=== PATIENT | male | born 1935 | race Hispanic/Latino ===

== ENCOUNTER 2018-05-05 13:03 | Emergency (ER) | payer MEDICARE ==
--- NOTE | 2018-05-05 14:13 | Emergency Department Report ---
ED General Adult HPI - General Chief complaint: Seizure Stated complaint: POSSIBLE SEIZURE Time Seen by Provider: 05/05/18 13:57 Source: patient, EMS (ems notes not available at time of chart dictation), RN notes reviewed Mode of arrival: Stretcher Limitations: No Limitations - History of Present Illness Initial comments: This is an 82-year-old male who was unknown to this provider. Has a past medical history of diabetes. Patient was at his primary care doctor's office, Dr. Orellana and was having routine phlebotomy performed. The patient reports at least 3 needle sticks. He indicates that while getting phlebotomy performed , he had convulsive-like activity, with urinary incontinence. Prior to the event, he had no symptoms, and reports being in his usual state of health. He specifically denies headache, neck pain, chest pain, abdominal pain, shortness of breath, urinary symptoms. His convulsive activity lasted for a few seconds, was not traumatic, and is now resolved. The patient indicates this is never happened to him before. He has no complaints at this time. -: Sudden Consistency: now resolved Improves with: none Worsens with: none Associated Symptoms: denies other symptoms, seizure. denies: chest pain, cough , diaphoresis, fever/chills, headaches, loss of appetite, malaise, nausea/ vomiting, rash, shortness of breath, syncope, weakness - Related Data Home Medications Medication Instructions Recorded Confirmed Last Taken AtorvaSTATin 80 mg PO HS 07/03/16 07/03/16 Unknown Diltiazem 240 mg PO DAILY 07/03/16 07/03/16 Unknown Enalapril Maleate 10 mg PO DAILY 07/03/16 07/03/16 Unknown Furosemide 20 mg PO DAILY 07/03/16 07/03/16 Unknown Klor-Con 10 1 tab PO DAILY 07/03/16 07/03/16 Unknown metFORMIN 500 mg PO DAILY 07/03/16 07/03/16 Unknown Previous Rx's Medication Instructions Recorded Last Taken Type Acetaminophen/Codeine [Tylenol #3] 1 tab PO Q6H PRN #10 tab 07/04/16 Unknown Rx Cyclobenzaprine HCl [Flexeril 5 MG 5 mg PO TID #15 tab 07/04/16 Unknown Rx TAB] Allergies Allergy/AdvReac Type Severity Reaction Status Date / Time ciprofloxacin [From Cipro] Allergy Hives Verified 07/03/16 20:44 ciprofloxacin HCl Allergy Hives Verified 07/03/16 20:44 [From Cipro] Penicillins Allergy Hives Verified 07/03/16 20:45 ED Review of Systems ROS: Stated complaint: POSSIBLE SEIZURE Other details as noted in HPI Comment: All other systems reviewed and negative ED Past Medical Hx - Past Medical History Hx Hypertension: Yes Hx Diabetes: Yes Hx of Cancer: Yes (bladder) Additional medical history: CARDIAC STENTS, LEFT COROTID PROBLEM - Surgical History Additional Surgical History: Left leg sugery - Social History Smoking Status: Never Smoker Substance Use Type: None - Medications Home Medications: Home Medications Medication Instructions Recorded Confirmed Last Taken Type AtorvaSTATin 80 mg PO HS 07/03/16 07/03/16 Unknown History Diltiazem 240 mg PO DAILY 07/03/16 07/03/16 Unknown History Enalapril Maleate 10 mg PO DAILY 07/03/16 07/03/16 Unknown History Furosemide 20 mg PO DAILY 07/03/16 07/03/16 Unknown History Klor-Con 10 1 tab PO DAILY 07/03/16 07/03/16 Unknown History metFORMIN 500 mg PO DAILY 07/03/16 07/03/16 Unknown History Acetaminophen/Codeine [Tylenol #3] 1 tab PO Q6H PRN #10 tab 07/04/16 Unknown Rx Cyclobenzaprine HCl [Flexeril 5 MG 5 mg PO TID #15 tab 07/04/16 Unknown Rx TAB] ED Physical Exam - General Limitations: No Limitations General appearance: alert, in no apparent distress - Head Head exam: Present: atraumatic (status post bilateral cataract surgery), normocephalic - Eye Eye exam: Present: normal appearance, EOMI, other (visual acuity intact to finger counting, color perception, reading at a close distance). Absent: nystagmus - ENT ENT exam: Present: normal exam, normal orophraynx, mucous membranes moist, normal external ear exam - Neck Neck exam: Present: normal inspection, full ROM. Absent: tenderness, meningismus - Respiratory Respiratory exam: Present: normal lung sounds bilaterally, chest wall tenderness. Absent: respiratory distress - Cardiovascular Cardiovascular Exam: Present: normal rhythm, bradycardia, systolic murmur (2/6 systolic murmur). Absent: tachycardia, irregular rhythm - GI/Abdominal GI/Abdominal exam: Present: soft, normal bowel sounds. Absent: distended, tenderness, guarding, rebound, rigid, pulsatile mass - Rectal Rectal exam: Present: deferred - Extremities Exam Extremities exam: Present: normal inspection, full ROM, normal capillary refill , pedal edema, other (there is no palpable cord. There is a negative Homans sign.). Absent: tenderness, calf tenderness - Back Exam Back exam: Present: normal inspection, full ROM. Absent: tenderness, CVA tenderness (R), paraspinal tenderness, vertebral tenderness - Neurological Exam Neurological exam: Present: alert, oriented X3, CN II-XII intact, normal gait, other (Extraocular movements intact. Tongue midline. No facial droop. Facial sensation intact to light touch in the V1, V2, V3 distribution bilaterally. 5 and 5 strength in 4 extremities.. Sensation is intact to light touch in 4 extremities.). Absent: motor sensory deficit - Psychiatric Psychiatric exam: Present: normal affect, normal mood - Skin Skin exam: Present: warm, dry, intact, normal color. Absent: rash ED Course Vital Signs 05/05/18 05/05/18 13:23 15:23 Temperature 98.3 F 97.7 F Pulse Rate 57 L 60 Respiratory 16 16 Rate Blood Pressure 154/60 Blood Pressure 161/64 [Right] O2 Sat by Pulse 94 95 Oximetry ED Medical Decision Making - Lab Data Result diagrams: 05/05/18 14:23 05/05/18 14:23 Vital Signs 05/05/18 05/05/18 13:23 15:23 Temperature 98.3 F 97.7 F Pulse Rate 57 L 60 Respiratory 16 16 Rate Blood Pressure 154/60 Blood Pressure 161/64 [Right] O2 Sat by Pulse 94 95 Oximetry Lab Results 05/05/18 05/05/18 05/05/18 Range/Units 14:23 14:23 14:23 WBC 10.3 (4.5-11.0) K/mm3 RBC 4.82 (3.65-5.03) M/mm3 Hgb 14.1 (11.8-15.2) gm/dl Hct 41.9 (35.5-45.6) % MCV 87 (84-94) fl MCH 29 (28-32) pg MCHC 34 (32-34) % RDW 13.6 (13.2-15.2) % Plt Count 220 (140-440) K/mm3 PT (12.2-14.9) Sec. INR (0.87-1.13) Sodium 140 (137-145) mmol/L Potassium 3.9 (3.6-5.0) mmol/L Chloride 101.4 (98-107) mmol/L Carbon Dioxide 25 (22-30) mmol/L Anion Gap 18 mmol/L BUN 19 (9-20) mg/dL Creatinine 1.2 (0.8-1.5) mg/dL Estimated GFR 58 ml/min BUN/Creatinine Ratio 16 % Glucose 102 H (75-100) mg/dL Calcium 10.1 (8.4-10.2) mg/dL Magnesium 2.20 (1.7-2.3) mg/dL Total Bilirubin 0.70 (0.1-1.2) mg/dL AST 28 (5-40) units/L ALT 35 (7-56) units/L Alkaline Phosphatase 78 (35-129) units/L Total Creatine Kinase 94 (55-170) units/L Total Protein 7.6 (6.3-8.2) g/dL Albumin 4.4 (3.9-5) g/dL Albumin/Globulin Ratio 1.4 % TSH 3.440 (0.270-4.200) mlU/mL Urine Color (Yellow) Urine Turbidity (Clear) Urine pH (5.0-7.0) Ur Specific [place] (1.003-1.030) Urine Protein (Negative) mg/dL Urine Glucose (UA) (Negative) mg/dL Urine Ketones (Negative) mg/dL Urine Blood (Negative) Urine Nitrite (Negative) Urine Bilirubin (Negative) Urine Urobilinogen (<2.0) mg/dL Ur Leukocyte Esterase (Negative) Urine WBC (Auto) (0.0-6.0) /HPF Urine RBC (Auto) (0.0-6.0) /HPF U Epithel Cells (Auto) (0-13.0) /HPF Urine Mucus /HPF 05/05/18 05/05/18 Range/Units 14:23 15:44 WBC (4.5-11.0) K/mm3 RBC (3.65-5.03) M/mm3 Hgb (11.8-15.2) gm/dl Hct (35.5-45.6) % MCV (84-94) fl MCH (28-32) pg MCHC (32-34) % RDW (13.2-15.2) % Plt Count (140-440) K/mm3 PT 13.9 (12.2-14.9) Sec. INR 1.02 (0.87-1.13) Sodium (137-145) mmol/L Potassium (3.6-5.0) mmol/L Chloride (98-107) mmol/L Carbon Dioxide (22-30) mmol/L Anion Gap mmol/L BUN (9-20) mg/dL Creatinine (0.8-1.5) mg/dL Estimated GFR ml/min BUN/Creatinine Ratio % Glucose (75-100) mg/dL Calcium (8.4-10.2) mg/dL Magnesium (1.7-2.3) mg/dL Total Bilirubin (0.1-1.2) mg/dL AST (5-40) units/L ALT (7-56) units/L Alkaline Phosphatase (35-129) units/L Total Creatine Kinase (55-170) units/L Total Protein (6.3-8.2) g/dL Albumin (3.9-5) g/dL Albumin/Globulin Ratio % TSH (0.270-4.200) mlU/mL Urine Color Yellow (Yellow) Urine Turbidity Clear (Clear) Urine pH 5.0 (5.0-7.0) Ur Specific [place] 1.012 (1.003-1.030) Urine Protein <15 mg/dl (Negative) mg/dL Urine Glucose (UA) 50 (Negative) mg/dL Urine Ketones Neg (Negative) mg/dL Urine Blood Neg (Negative) Urine Nitrite Neg (Negative) Urine Bilirubin Neg (Negative) Urine Urobilinogen < 2.0 (<2.0) mg/dL Ur Leukocyte Esterase Neg (Negative) Urine WBC (Auto) 4.0 (0.0-6.0) /HPF Urine RBC (Auto) 2.0 (0.0-6.0) /HPF U Epithel Cells (Auto) < 1.0 (0-13.0) /HPF Urine Mucus Few /HPF - EKG Data -: EKG Interpreted by Ut Rate: bradycardia - EKG Data When compared to previous EKG there are: previous EKG unavailable 05/05/18 16:28 Bradycardia, 57 beats minute, normal axis, QTC prolonged, right bundle branch block, not having chest pain, not a STEMI - Radiology Data Radiology results: report reviewed, image reviewed Noncontrast CT scan of the brain demonstrates no acute disease. Chronic findings noted. X-ray of the chest is negative for acute disease. Incidental age-related findings are noted. - Medical Decision Making Differential diagnosis, including but not limited to: Orthostasis, vagal event, electrolyte derangement, pneumonia, urinary tract infection, nonspecific convulsive event Assessment and plan: 82-year-old male with convulsive event while experiencing phlebotomy. This lasted for a few seconds and is now resolved. He had no complaints before the event and has no complaints at this time. He is afebrile with reassuring vital signs, clinically sober, has a Ilda Coma Scale of 15, with NIH score of 0. The patient prefers to follow up as an outpatient. He is counseled to follow up with his outpatient primary care doctor or a local neurology specialist for clearance to operating motor vehicle. Critical care attestation.: If time is entered above; I have spent that time in minutes in the direct care of this critically ill patient, excluding procedure time. ED Disposition Clinical Impression: Convulsion Disposition: DC-01 TO HOME OR SELFCARE Is pt being admited?: No Does the pt Need Aspirin: No Condition: Stable Instructions: Epilepsy (ED) Additional Instructions: Do not drive or operate motor vehicles for the next 6 months. Follow up with a primary care doctor or any of the listed neurology doctors within the next 5-7 days for further follow-up and evaluation. Return to the ER right away with new pain, worsened pain, migration of pain, fevers, chills, lethargy, irritability, projectile vomiting, change in mental status, confusion, inability to tolerate liquid feeds. Referrals: RUSH OLEARY MD [Primary Care Provider] - 3-5 Days GABRIEL ORELLANA MD [Staff Physician] - 3-5 Days JOO WALKER MD [Referring] - 3-5 Days RIGO CONNOR MD [Staff Physician] - 3-5 Days BASIA CHISHOLM MD [Staff Physician] - 3-5 Days
[2018-05-05 14:43] LABS: Hematocrit 41.9 % (35.5-45.6); Hemoglobin 14.1 gm/dl (11.8-15.2); Mean Corpuscular HGB Conc 34 % (32-34); Mean Corpuscular Hemoglobin 29 pg (28-32); Mean Corpuscular Volume 87 fl (84-94); Platelet Count 220 K/mm3 (140-440); Red Blood Count 4.82 M/mm3 (3.65-5.03); Red Cell Distribution Width 13.6 % (13.2-15.2)
[2018-05-05 15:00] LABS: INR 1.02 (0.87-1.13)
[2018-05-05 15:06] LABS: Albumin 4.4 g/dL (3.9-5); Calcium 10.1 mg/dL (8.4-10.2)
--- NOTE | 2018-05-05 15:34 | XRay Report ---
CHEST 2 VIEWS INDICATION: Seizure. COMPARISON: None similar. FINDINGS: Frontal and lateral chest radiographs demonstrate normal cardiomediastinal silhouette. Small perihilar blood vessels on-end versus few calcified granulomas. Slightly prominent bronchovascular markings centrally and toward the bases. Subtle costophrenic angle blunting, right more than left, not excluded for minimal fluid. No CHF however. Aortic knob calcifications. Demineralized bones with multilevel spinal degenerative spurring and few old healed rib deformities. CONCLUSION: Few incidental findings, as above. Please also correlate currently and with prior relevant imaging, if available. Thank you for the opportunity to participate in this patient's care.
--- NOTE | 2018-05-05 15:38 | Cat Scan Report ---
CT HEAD WITHOUT CONTRAST INDICATION: Seizure. COMPARISON: None similar. FINDINGS: Noncontrast head CT demonstrates symmetric, age-appropriate, enlarged ventricles and sulci. No acute infarct, hemorrhage, mass effect or midline shift. Predominantly bifrontal [id number] periventricular hypodensities. Prominent bifrontal extra-axial CSF spaces with approximately 5 mm thickness as on axial image 38, series 2. Normal posterior fossa with preserved basilar cisterns. Bilateral cataract surgery. Mild rightward nasal septal bowing. Mild bilateral ethmoid sinusitis. Clear remainder imaged paranasal sinuses and temporal bone air cells. Mild mastoid tip air cell opacification suspected, left more than right. Atherosclerotic ICA and vertebral artery calcifications. Intact calvarium. Normal scalp. Edentulous jaw. Cervical spondylosis. CONCLUSION: No acute intracranial CT abnormality with age-appropriate atrophy, microvascular changes and few other findings, as above. Please correlate. Thank you for the opportunity to participate in this patient's care.
[2018-05-05 15:53] LABS: Bilirubin,Urine NEG (Negative); Blood,Urine NEG (Negative); Color,Urine Yellow (Yellow); Mucus,Urine FEW /HPF; Protein,Urine <15 mg/dL mg/dL (Negative); Urobilinogen,Urine < 2.0 mg/dL (<2.0)
[2018-05-05 17:28] VITALS: BP 166/69
== END 2018-05-05 17:48 | disposition home or self-care (01) ==
LOC: ED 13:03
DX: R56.9 Unspecified convulsions (principal); I10 Essential (primary) hypertension; E11.9 Type 2 diabetes mellitus without complications; Z85.51 Personal history of malignant neoplasm of bladder; Z95.1 Presence of aortocoronary bypass graft; Z88.1 Allergy status to other antibiotic agents; Z88.0 Allergy status to penicillin
CPT/HCPCS: 36415; 70450; 71046; 80053; 81001; 82550; 83735; 84443; 85027; 85610; 93005; 93010

== ENCOUNTER 2019-01-23 09:37 | Emergency (ER) | payer MEDICARE ==
[2019-01-23] MEDS ORDERED: MORPHINE IV ONE ×3 (10:45→14:45)
[2019-01-23] MEDS ORDERED: ZOFRAN IV ONE (10:45)
--- NOTE | 2019-01-23 10:52 | Emergency Department Report ---
ED Back Pain/Injury HPI - General Chief Complaint: Back Pain/Injury Stated Complaint: KIDNEY ISSUES Time Seen by Provider: 01/23/19 10:13 Source: patient, family Limitations: No Limitations - History of Present Illness Initial Comments: 83-year-old male with a past medical history CAD with stents, bladder cancer treated surgically and currently in remission, diabetes, hypertension, previous cholecystectomy since the hospital complaint right flank pain 1 week. Patient states that it feels like he was struck with a sledgehammer. Patient had blood drawn by his PCP 3 days ago and received a call last night that result showed "slowed kidneys". Patient became concerned when he did not have any urinary output this morning despite drinking plenty of fluids. He's been taking Tylenol intermittently for pain without relief. Right flank pain is moderate, constant, worse with palpation and movement. No distal weakness or numbness reported. PMD: Dr. tae Pulido Grill Cook: Dr. Tapia, urologist Dr. Youngblood - Related Data Home Medications Medication Instructions Recorded Confirmed Last Taken Alendronate Sodium [Fosamax] 70 mg PO QWEEK 01/23/19 01/23/19 Unknown Aspirin [Aspirin BABY CHEW TAB] 81 mg PO QDAY 01/23/19 01/23/19 Unknown AtorvaSTATin [Lipitor] 80 mg PO QHS 01/23/19 01/23/19 Unknown Cholecalciferol Vit D3 [Vitamin D3 1,000 unit PO QDAY 01/23/19 01/23/19 Unknown 1,000 UNIT TAB] Cranberry Fruit Extract [Cranberry] 500 mg PO QDAY 01/23/19 01/23/19 Unknown Diltiazem HCl [Diltiazem ER] 240 mg PO QDAY 01/23/19 01/23/19 Unknown Lactobacill 46/B.animal/Inulin 1 each PO QDAY 01/23/19 01/23/19 Unknown [Probiotic-10 10 Bill Cell Cap] Losartan [Cozaar] 50 mg PO QDAY 01/23/19 01/23/19 Unknown [place]-3 Fatty Acids/Fish Oil [Fish 1 each PO QDAY 01/23/19 01/23/19 Unknown Oil 1,000 mg Capsule] metFORMIN [Glucophage] 500 mg PO QDAY 01/23/19 01/23/19 Unknown Previous Rx's Medication Instructions Recorded Last Taken Type HYDROcodone/APAP 5-325 [[place] 1 each PO Q6HR PRN #20 tablet 01/23/19 Unknown Rx 5/325] Ibuprofen [Motrin] 400 mg PO Q8H PRN #20 tablet 01/23/19 Unknown Rx Ondansetron [Zofran Odt] 4 mg PO Q8HR PRN #20 tab.rapdis 01/23/19 Unknown Rx Allergies Allergy/AdvReac Type Severity Reaction Status Date / Time ciprofloxacin [From Cipro] Allergy Hives Verified 01/23/19 09:40 ciprofloxacin HCl Allergy Hives Verified 01/23/19 09:40 [From Cipro] Penicillins Allergy Hives Verified 01/23/19 09:40 ED Review of Systems ROS: Stated complaint: KIDNEY ISSUES Other details as noted in HPI Comment: All other systems reviewed and negative ED Past Medical Hx - Past Medical History Hx Hypertension: Yes Hx Diabetes: Yes Hx of Cancer: Yes (bladder cancer) Additional medical history: CARDIAC STENTS, LEFT COROTID PROBLEM - Surgical History Hx Cholecystectomy: Yes Additional Surgical History: Left leg sugery - Social History Smoking Status: Former Smoker - Medications Home Medications: Home Medications Medication Instructions Recorded Confirmed Last Taken Type Alendronate Sodium [Fosamax] 70 mg PO QWEEK 01/23/19 01/23/19 Unknown History Aspirin [Aspirin BABY CHEW TAB] 81 mg PO QDAY 01/23/19 01/23/19 Unknown History AtorvaSTATin [Lipitor] 80 mg PO QHS 01/23/19 01/23/19 Unknown History Cholecalciferol Vit D3 [Vitamin D3 1,000 unit PO QDAY 01/23/19 01/23/19 Unknown History 1,000 UNIT TAB] Cranberry Fruit Extract [Cranberry] 500 mg PO QDAY 01/23/19 01/23/19 Unknown History Diltiazem HCl [Diltiazem ER] 240 mg PO QDAY 01/23/19 01/23/19 Unknown History HYDROcodone/APAP 5-325 [[place] 1 each PO Q6HR PRN #20 tablet 01/23/19 Unknown Rx 5/325] Ibuprofen [Motrin] 400 mg PO Q8H PRN #20 tablet 01/23/19 Unknown Rx Lactobacill 46/B.animal/Inulin 1 each PO QDAY 01/23/19 01/23/19 Unknown History [Probiotic-10 10 Bill Cell Cap] Losartan [Cozaar] 50 mg PO QDAY 01/23/19 01/23/19 Unknown History [place]-3 Fatty Acids/Fish Oil [Fish 1 each PO QDAY 01/23/19 01/23/19 Unknown History Oil 1,000 mg Capsule] Ondansetron [Zofran Odt] 4 mg PO Q8HR PRN #20 tab.rapdis 01/23/19 Unknown Rx metFORMIN [Glucophage] 500 mg PO QDAY 01/23/19 01/23/19 Unknown History ED Physical Exam - General Limitations: No Limitations - Other Other exam information: General: No limitations, patient is alert in no acute distress Head exam: Atraumatic, normocephalic Eyes exam: Normal appearance, pupils equal reactive to light, extraocular movements intact ENT: Moist mucous membrane Neck exam: Normal inspection, full range of motion, no meningismus nontender Respiratory exam: Clear to auscultation bilateral, no wheezes, rales, crackles Cardiovascular: Normal rate and rhythm, systolic murmur Abdomen: Soft, nondistended, and nontender, with normal bowel sounds, no rebound, or guarding Extremity: Full range of motion normal inspection no deformity Back: Normal Inspection, full range of motion, right flank pain, no midline tenderness Neurologic: Alert, oriented x3, cranial nerves intact, no motor or sensory deficit Psychiatric: normal affect, normal mood Skin: Warm, dry, intact ED Course Vital Signs 01/23/19 01/23/19 10:14 10:16 Temperature 97.8 F Pulse Rate 60 Respiratory 17 17 Rate Blood Pressure 150/57 [Right] O2 Sat by Pulse 96 96 Oximetry - Consultations Consultation #1: 01/23/19 14:26 case d/w Dr Reddy disposition clerk for [facility], last time he was seen was in the office in Sep with scheduled f/u in March. States march f/u with Dr Engel regarding flank pain and ct findings. Consultation #2: 01/23/19 14:31 Case d/w Dr Jalloh (pul) disposition clerk for Dr Orellana, agree that pt can f/u ED Medical Decision Making - Lab Data Result diagrams: 01/23/19 10:42 01/23/19 10:42 Lab Results 01/23/19 01/23/19 01/23/19 Range/Units 10:42 10:42 13:20 WBC 6.5 (4.5-11.0) K/mm3 RBC 4.53 (3.65-5.03) M/mm3 Hgb 13.1 (11.8-15.2) gm/dl Hct 38.6 (35.5-45.6) % MCV 85 (84-94) fl MCH 29 (28-32) pg MCHC 34 (32-34) % RDW 14.2 (13.2-15.2) % Plt Count 206 (140-440) K/mm3 Lymph % (Auto) 20.7 (13.4-35.0) % [place] % (Auto) 6.9 (0.0-7.3) % Eos % (Auto) 1.1 (0.0-4.3) % Baso % (Auto) 0.8 (0.0-1.8) % Lymph # 1.4 (1.2-5.4) K/mm3 [place] # 0.4 (0.0-0.8) K/mm3 Eos # 0.1 (0.0-0.4) K/mm3 Baso # 0.1 (0.0-0.1) K/mm3 Seg Neutrophils % 70.5 H (40.0-70.0) % Seg Neutrophils # 4.6 (1.8-7.7) K/mm3 Sodium 137 (137-145) mmol/L Potassium 4.6 (3.6-5.0) mmol/L Chloride 102.7 (98-107) mmol/L Carbon Dioxide 23 (22-30) mmol/L Anion Gap 16 mmol/L BUN 18 (9-20) mg/dL Creatinine 1.2 (0.8-1.5) mg/dL Estimated GFR 58 ml/min BUN/Creatinine Ratio 15 % Glucose 127 H (75-100) mg/dL Calcium 9.2 (8.4-10.2) mg/dL Total Bilirubin 0.60 (0.1-1.2) mg/dL AST 20 (5-40) units/L ALT 25 (7-56) units/L Alkaline Phosphatase 59 (35-129) units/L Total Protein 6.6 (6.3-8.2) g/dL Albumin 4.0 (3.9-5) g/dL Albumin/Globulin Ratio 1.5 % Urine Color Straw (Yellow) Urine Turbidity Clear (Clear) Urine pH 5.0 (5.0-7.0) Ur Specific [place] 1.008 (1.003-1.030) Urine Protein <15 mg/dl (Negative) mg/dL Urine Glucose (UA) Neg (Negative) mg/dL Urine Ketones Neg (Negative) mg/dL Urine Blood Neg (Negative) Urine Nitrite Neg (Negative) Urine Bilirubin Neg (Negative) Urine Urobilinogen < 2.0 (<2.0) mg/dL Ur Leukocyte Esterase Neg (Negative) Urine WBC (Auto) 1.0 (0.0-6.0) /HPF Urine RBC (Auto) 1.0 (0.0-6.0) /HPF U Epithel Cells (Auto) < 1.0 (0-13.0) /HPF Urine Mucus Few /HPF - Radiology Data Radiology results: report reviewed PROCEDURE: CT ABDOMEN PELVIS WO CON TECHNIQUE: HISTORY: right flank pain, decreased uop, hx of bladder ca FINDINGS: TECHNICAL QUALITY: Satisfactory. FINDINGS: Lower lung bases: Moderate size right pleural effusion and dependent pleural-based opacity. Small calcifications within the opacity. Trace left pleural effusion. Anterior pericardial effusion measures 1.1 cm in diameter. Liver: Normal size and attenuation. Spleen: Normal size and attenuation. Gall bladder and biliary system: Surgically absent. Pancreas: Normal. Adrenals: Normal. Kidneys: 2.5 x 2 cm right renal cyst. Mild to moderate right-sided hydronephrosis to the level urinary bladder. No stones within the right ureter. GI tract: Normal . Lymph nodes and mesentery: Normal. Vasculature: Ath erosclerosis of the abdominal aorta without aneurysm. Peritoneum: No free fluid. Musculoskeletal structures: No significant abnormality. Other: None. IMPRESSION: 1. Mild to moderate right-sided hydroureteronephrosis to the level urinary bladder without stone. Stricture at the UVJ could be a possibility. 2. Pleural effusions with pleural base calcifications versus recent opacity in the right lower lobe. Attention on next follow-up. PROCEDURE: XR CHEST 1V AP TECHNIQUE: Single frontal portable view of the chest HISTORY: right sided pain, possible effusion on ct COMPARISONS: 2 view chest 05/05/[address] 01/23/2019 FINDINGS: Right pleural effusion appears small on this single frontal view. The posterior lung base is not visualized on frontal portable chest. No evidence of left pleural effusion. No pneumothorax. Normal cardiac silhouette size without vascular congestion. No acute displaced fracture. Aortic arch calcification compatible with atherosclerosis. Degenerative spondylosis thoracic spine. Healed left rib fractures. No focal pulmonary consolidation. IMPRESSION: Right pleural effusion appears small on this single frontal view - Medical Decision Making Patient feeling better with additional meds provided prior to discharge. Explained to patient and his his findings regarding his kidneys, renal fu nction, and pleural effusion and the need for follow-up. Pain meds will be provided - Differential Diagnosis renal colic, cancer, UTI, dehydration Critical Care Time: No Critical care attestation.: If time is entered above; I have spent that time in minutes in the direct care of this critically ill patient, excluding procedure time. ED Disposition Clinical Impression: Right flank pain, Hydroureteronephrosis, Pleural effusion, right Disposition: - TO HOME OR SELFCARE Is pt being admited?: No Does the pt Need Aspirin: No Condition: Stable Instructions: Hydronephrosis (ED), Pleural Effusion (ED) Additional Instructions: Take the medication as prescribed. Follow up with your doctor or the clinic/doctor provided. Return if symptoms worsen as indicated by your discharge instructions. Take the copy of your labs and imaging results to your doctor for follow-up Prescriptions: Ibuprofen [Motrin] 400 mg PO Q8H PRN #20 tablet PRN Reason: Pain, Moderate (4-6) HYDROcodone/APAP 5-325 [[place] 5/325] 1 each PO Q6HR PRN #20 tablet PRN Reason: Pain Ondansetron [Zofran Odt] 4 mg PO Q8HR PRN #20 tab.rapdis PRN Reason: Nausea And Vomiting Referrals: GABRIEL ORELLANA MD [Primary Care Provider] - 3-5 Days SILVANA REYES MD [Staff Physician] - 3-5 Days Time of Disposition: 14:55
[2019-01-23 10:56] LABS: Basophils # (Auto) 0.1 K/mm3 (0.0-0.1); Basophils % (Auto) 0.8 % (0.0-1.8); Eosinophils # (Auto) 0.1 K/mm3 (0.0-0.4); Eosinophils % (Auto) 1.1 % (0.0-4.3); Hematocrit 38.6 % (35.5-45.6); Hemoglobin 13.1 gm/dl (11.8-15.2); Lymphocytes # (Auto) 1.4 K/mm3 (1.2-5.4); Lymphocytes % (Auto) 20.7 % (13.4-35.0); Mean Corpuscular HGB Conc 34 % (32-34); Mean Corpuscular Volume 85 fl (84-94); Monocytes # (Auto) 0.4 K/mm3 (0.0-0.8); Monocytes % (Auto) 6.9 % (0.0-7.3); Platelet Count 206 K/mm3 (140-440); Red Blood Count 4.53 M/mm3 (3.65-5.03); Red Cell Distribution Width 14.2 % (13.2-15.2)
[2019-01-23 11:16] LABS: Calcium 9.2 mg/dL (8.4-10.2)
--- NOTE | 2019-01-23 12:59 | Cat Scan Report ---
PROCEDURE: CT ABDOMEN PELVIS WO CON TECHNIQUE: HISTORY: right flank pain, decreased uop, hx of bladder ca FINDINGS: TECHNICAL QUALITY: Satisfactory. FINDINGS: Lower lung bases: Moderate size right pleural effusion and dependent pleural-based opacity. Small calcifications within the opacity. Trace left pleural effusion. Anterior pericardial effusion measures 1.1 cm in diameter. Liver: Normal size and attenuation. Spleen: Normal size and attenuation. Gallbladder and biliary system: Surgically absent. Pancreas: Normal. Adrenals: Normal. Kidneys: 2.5 x 2 cm right renal cyst. Mild to moderate right-sided hydronephrosis to the level urinar y bladder. No stones within the right ureter. GI tract: Normal . Lymph nodes and mesentery: Normal. Vasculature: Atherosclerosis of the abdominal aorta without aneurysm. Peritoneum: No free fluid. Musculoskeletal structures: No significant abnormality. Other: None. IMPRESSION: 1. Mild to moderate right-sided hydroureteronephrosis to the level urinary bladder without stone. Str icture at the UVJ could be a possibility. 2. Pleural effusions with pleural base calcifications versus recent opacity in the right lower lobe. Attention on next follow-up. . This document is electronically signed by Charmaine Cabrera MD., January 23 2019 12:56:59 PM ET
[2019-01-23 13:39] LABS: Bilirubin,Urine NEG (Negative); Blood,Urine NEG (Negative); Color,Urine Straw (Yellow); Mucus,Urine FEW /HPF; Protein,Urine <15 mg/dL mg/dL (Negative); Urobilinogen,Urine < 2.0 mg/dL (<2.0)
--- NOTE | 2019-01-23 14:31 | XRay Report ---
PROCEDURE: XR CHEST 1V AP TECHNIQUE: Single frontal portable view of the chest HISTORY: right sided pain, possible effusion on ct COMPARISONS: 2 view chest 05/05/[address] 01/23/2019 FINDINGS: Right pleural effusion appears small on this single frontal view. The posterior lung base is not visu alized on frontal portable chest. No evidence of left pleural effusion. No pneumothorax. Normal cardiac silhouette size without vascula r congestion. No acute displaced fracture. Aortic arch calcification compatible with atherosclerosis. Degenerative spondylosis thoracic spine. Healed left rib fractures. No focal pulmonary consolidation . IMPRESSION: Right pleural effusion appears small on this single frontal view This document is electronically signed by Craig Weldon MD., January 23 2019 02:28:40 PM ET
[2019-01-23] MEDS ORDERED: TORADOL IV ONE (14:47)
[2019-01-23 15:35] VITALS: BP 146/5
== END 2019-01-23 15:34 | disposition home or self-care (01) ==
LOC: ED 09:37
DX: N13.30 Unspecified hydronephrosis (principal); J90 Pleural effusion, not elsewhere classified; I10 Essential (primary) hypertension; E11.9 Type 2 diabetes mellitus without complications; Z95.5 Presence of coronary angioplasty implant and graft; Z85.51 Personal history of malignant neoplasm of bladder; Z87.891 Personal history of nicotine dependence; Z90.49 Acquired absence of other specified parts of digestive tract; Z88.1 Allergy status to other antibiotic agents; Z88.0 Allergy status to penicillin; Z79.84 Long term (current) use of oral hypoglycemic drugs
CPT/HCPCS: 36415; 71045; 74176; 80053; 81001; 85025; 96374; 96375; 96376; 99284; J1885; J2270; J2405

== ENCOUNTER 2019-07-01 09:20 | Outpatient (CLI) | payer MEDICARE ==
[2019-07-01 10:44] LABS: Hematocrit 39.2 % (35.5-45.6); Hemoglobin 13.1 gm/dl (11.8-15.2); Mean Corpuscular HGB Conc 34 % (32-34); Mean Corpuscular Volume 86 fl (84-94); Platelet Count 213 K/mm3 (140-440); Red Blood Count 4.57 M/mm3 (3.65-5.03); Red Cell Distribution Width 13.5 % (13.2-15.2)
[2019-07-01 10:57] LABS: Albumin 4.2 g/dL (3.9-5); Calcium 9.2 mg/dL (8.4-10.2); Chol/HDL Ratio 2.31 %
[2019-07-05 13:05] LABS: Vitamin D, 25-OH, D2 <4 ng/mL
== END 2019-07-01 09:21 | disposition home or self-care (01) ==
LOC: LAB 09:20
PROVIDERS: ATTEND Internal Medicine
DX: E11.9 Type 2 diabetes mellitus without complications (principal); E78.5 Hyperlipidemia, unspecified; Z13.21 Encounter for screening for nutritional disorder; I10 Essential (primary) hypertension
CPT/HCPCS: 36415; 80053; 80061; 82306; 83036; 84443; 85027

== ENCOUNTER 2019-07-22 08:21 | Emergency (ER) | payer MEDICARE ==
[2019-07-22 11:07] VITALS: BP 172/98
--- NOTE | 2019-07-22 11:16 | Emergency Department Report ---
Upper Extremity - HPI Chief Complaint: Fall Stated Complaint: RT ARM FALL INJURY/WILLA Time Seen by Provider: 07/22/19 11:13 Upper Extremity: Right Arm, Right Elbow, Right Forearm Occurred When: 1 Day Mechanism: Fall Symptoms: Yes Pain with Movement, Yes Limited Range of Movement, No Deformity, No Numbness, No Weakness, No Swelling, No Bruising/Ecchymosis, No Laceration or Abrasion Other History: Patient is a 84-year-old male that presents emergency room with complaints of right forearm and right upper arm pain. Patient states he fell last night. Patient states he hit his arm against a piece of furniture. Patient states he has a history of osteoporosis, high cholesterol, high blood pressure. Patient's [facility] chart reviewed ED Review of Systems ROS: Stated complaint: RT ARM FALL INJURY/WILLA Other details as noted in HPI Constitutional: denies: chills, fever Eyes: denies: eye pain, eye discharge, vision change ENT: denies: ear pain, throat pain Respiratory: denies: cough, shortness of breath, wheezing Cardiovascular: denies: chest pain, palpitations Endocrine: no symptoms reported Gastrointestinal: denies: abdominal pain, nausea, diarrhea Genitourinary: denies: urgency, dysuria Musculoskeletal: denies: back pain, joint swelling, arthralgia Skin: denies: rash, lesions Neurological: denies: headache, weakness, paresthesias Psychiatric: denies: anxiety, depression Hematological/Lymphatic: denies: easy bleeding, easy bruising ED Past Medical Hx - Past Medical History Previous Medical History?: Yes Hx Hypertension: Yes Hx Diabetes: Yes Additional medical history: CARDIAC STENTS, LEFT COROTID PROBLEM - Surgical History Past Surgical History?: Yes Hx Cholecystectomy: Yes Additional Surgical History: Left leg sugery - Family History Family history: no significant - Social History Smoking Status: Former Smoker Substance Use Type: None - Medications Home Medications: Home Medications Medication Instructions Recorded Confirmed Last Taken Type Alendronate Sodium [Fosamax] 70 mg PO QWEEK 01/23/19 07/22/19 07/22/19 History Aspirin [Aspirin BABY CHEW TAB] 81 mg PO QDAY 01/23/19 07/22/19 07/22/19 History AtorvaSTATin [Lipitor] 80 mg PO QHS 01/23/19 07/22/19 07/22/19 History Cholecalciferol Vit D3 [Vitamin D3 1,000 unit PO QDAY 01/23/19 07/22/19 07/21/19 History 1,000 UNIT TAB] Cranberry Fruit Extract [Cranberry] 500 mg PO QDAY 01/23/19 07/22/19 07/21/19 History Diltiazem HCl [Diltiazem ER] 240 mg PO QDAY 01/23/19 07/22/19 07/22/19 History Ibuprofen [Motrin] 400 mg PO Q8H PRN #20 tablet 01/23/19 07/22/19 07/21/19 Rx Lactobacill 46/B.animal/Inulin 1 each PO QDAY 01/23/19 07/22/19 07/21/19 History [Probiotic-10 10 Bill Cell Cap] Losartan [Cozaar] 50 mg PO QDAY 01/23/19 07/22/19 07/22/19 History War-3 Fatty Acids/Fish Oil [Fish 1 each PO QDAY 01/23/19 07/22/19 07/21/19 History Oil 1,000 mg Capsule] Ondansetron [Zofran Odt] 4 mg PO Q8HR PRN #20 tab.rapdis 01/23/19 07/22/19 07/21/19 Rx metFORMIN [Glucophage] 500 mg PO QDAY 01/23/19 07/22/19 07/22/19 History Upper Extremity Exam - Exam General: Vital signs noted. No distress. Alert and acting appropriately. Head and Torso: No Neck Tenderness, No Chest/Lungs Abnormality, No Abdominal Tenderness, No Back Tenderness Shoulder Exam: Yes Normal Range of Motion in Shoulder, No Shoulder Tenderness, No Clavicle Tenderness, No Shoulder Deformity, No AC Joint Tenderness Arm Exam: Yes Arm/Humerus Tenderness, No Arm Deformity Elbow: Yes Elbow Tenderness, No Normal Range of Motion in Elbow, No Elbow Deformity Forearm: Yes Forearm Tenderness, Yes Pain with Pronation, Yes Pain with Supination, No Forearm Deformity Wrist: Yes Normal ROM in Wrist, No Wrist Tenderness, No Wrist Deformity, No Snuffbox Tenderness, No Pain with Axial Thumb Compression Hand: Yes Normal ROM in Digit(s), No Hand Tenderness, No Hand Deformity, No Digit Tenderness, No Digit(s) Deformity, No Tendon Dysfunction CMS Exam: Yes Normal Distal Pulses, Yes Normal Capillary Refill, Yes Normal Distal Sensation, No Broken Skin ED Course Vital Signs 07/22/19 07/22/19 08:32 11:06 Temperature 98.5 F 98.2 F Pulse Rate 57 L 52 L Respiratory 18 18 Rate Blood Pressure 148/57 Blood Pressure 172/98 [Right] O2 Sat by Pulse 98 100 Oximetry - Reevaluation(s) Reevaluation #1: I discussed all results with patient. Patient is stable for discharge. Patient will be discharged home. Patient agrees with plan of care. Patient given discharge instructions. Patient voiced understanding discharge instructions. 07/22/19 12:25 ED Medical Decision Making - Radiology Data Radiology results: report reviewed RIGHT HUMERUS HISTORY: Fall. COMPARISON: None. TECHNIQUE: 2 views of the right humerus were obtained. FINDINGS: Bones: No fracture or dislocation. Joint spaces: Maintained. Soft tissues: No significant abnormality. Additional findings: None. IMPRESSION: 1. No significant abnormality. RIGHT FOREARM HISTORY: Fall. COMPARISON: None. TECHNIQUE: 2 views of the right forearm were obtained. FINDINGS: Bones: No fracture or dislocation. A benign exostosis of the proximal radius. Joint spaces: Maintained. Soft tissues: No significant abnormality. Additional findings: None. IMPRESSION: 1. No significant abnormality. - Medical Decision Making Patient is an 84-year-old male that presents emergency room with right arm pain after fall. Patient had an x-ray done in the ER was negative for fracture. Patient's findings with contusion secondary to fall. Patient is home. Patient stable for discharge. Patient given discharge instructions. Patient instructed to follow up with primary care and orthopedist as soon as possible. - Differential Diagnosis occasion, strain, sprain, fracture. Arm pain Critical care attestation.: If time is entered above; I have spent that time in minutes in the direct care of this critically ill patient, excluding procedure time. ED Disposition Clinical Impression: Right forearm pain Upper arm pain Qualifiers: Laterality: right Qualified Code(s): M79.621 - Pain in right upper arm Arm contusion Qualifiers: Encounter type: initial encounter Laterality: right Qualified Code(s): S40.021A - Contusion of right upper arm, initial encounter Disposition: - TO HOME OR SELFCARE Is pt being admited?: No Does the pt Need Aspirin: No Condition: Stable Instructions: Contusion in Adults (ED) Additional Instructions: Patient to follow up with primary care in 2-3 days. Patient to follow-up with orthopedist in 2-3 days. Patient to return to ER if condition worsens. Patient to take meds as directed. Patient increase water. . Patient to take Tylenol or ibuprofen when necessary for pain. R.I.C.E. Patient to elevate limb. . Referrals: PRIMARY CAREMD [Primary Care Provider] - 2-3 Days PAYAM ORTIZ MD [Staff Physician] - 2-3 Days Time of Disposition: 12:28
--- NOTE | 2019-07-22 12:04 | XRay Report ---
RIGHT FOREARM HISTORY: Fall. COMPARISON: None. TECHNIQUE: 2 views of the right forearm were obtained. FINDINGS: Bones: No fracture or dislocation. A benign exostosis of the proximal radius. Joint spaces: Maintained. Soft tissues: No significant abnormality. Additional findings: None. IMPRESSION: 1. No significant abnormality. Signer Name: Naun Alonzo MD Signed: 07/22/2019 12:00 PM Workstation Name: [id number]
--- NOTE | 2019-07-22 12:05 | XRay Report ---
RIGHT HUMERUS HISTORY: Fall. COMPARISON: None. TECHNIQUE: 2 views of the right humerus were obtained. FINDINGS: Bones: No fracture or dislocation. Joint spaces: Maintained. Soft tissues: No significant abnormality. Additional findings: None. IMPRESSION: 1. No significant abnormality. Signer Name: Naun Alonzo MD Signed: 07/22/2019 12:00 PM Workstation Name: [id number]
== END 2019-07-22 13:21 | disposition home or self-care (01) ==
LOC: ED 08:21
DX: S40.021A Contusion of right upper arm, initial encounter (principal); I10 Essential (primary) hypertension; E11.9 Type 2 diabetes mellitus without complications; Z90.49 Acquired absence of other specified parts of digestive tract; Z87.891 Personal history of nicotine dependence; W18.30XA Fall on same level, unspecified, initial encounter; Y93.89 Activity, other specified; Y92.89 Other specified places as the place of occurrence of the external cause; Y99.8 Other external cause status

== ENCOUNTER 2019-11-08 09:54 | Outpatient (CLI) | payer MEDICARE ==
[2019-11-08 12:53] LABS: Chol/HDL Ratio 2.68 %
== END 2019-11-08 09:55 | disposition home or self-care (01) ==
LOC: LAB 09:54
PROVIDERS: ATTEND Internal Medicine
DX: E11.9 Type 2 diabetes mellitus without complications (principal); E78.5 Hyperlipidemia, unspecified
CPT/HCPCS: 36415; 80061; 83036